=== PATIENT | female | born 1965 | race Caucasian/White ===

== ENCOUNTER 2018-07-28 19:57 | Emergency (ER) | payer BC ==
[2018-07-28] MEDS ORDERED: ASPIRIN 81 MG TABLET, CHEWABLE PO ONE (19:58)
--- NOTE | 2018-07-28 20:44 | RADIOLOGY REPORT (SQ) ---
XR CHEST 1 VIEW HISTORY: CP. COMPARISON: None. FINDINGS: The heart size is normal. The lungs are clear. No pleural effusions or pneumothorax is seen. No acute bony findings. IMPRESSION: No evidence of acute cardiopulmonary disease.
[2018-07-28 21:39] LABS: ABSOLUTE EOSINOPHILS # (AUTO) 0.1 10^3/uL (0.0-0.6); ABSOLUTE LYMPHOCYTES (AUTO) 1.1 10^3/uL (0.5-4.7); ABSOLUTE MONOCYTES (AUTO) 0.8 10^3/uL (0.1-1.4); ABSOLUTE NEUT (AUTO) 17.6 10^3/uL (1.7-8.2); BASOPHILS % (AUTO) 0.2 % (0-2); EOSINOPHILS % (AUTO) 0.3 % (0-6); HEMATOCRIT 46.4 % (36.0-47.0); HEMOGLOBIN 15.9 g/dL (12.0-15.5); LYMPHOCYTES % (AUTO) 5.6 % (13-45); MEAN CORPUSCULAR HEMOGLOBIN 31.5 pg (27.0-33.4); MEAN CORPUSCULAR HGB CONC 34.2 g/dL (32.0-36.0); MEAN CORPUSCULAR VOLUME 92 fl (80-97); MONOCYTES % (AUTO) 3.9 % (3-13); PLATELET COUNT 274 10^3/uL (150-450); RED BLOOD COUNT 5.04 10^6/uL (3.72-5.28); RED CELL DISTRIBUTION WIDTH 11.9 % (11.5-14.0); TOTAL CELLS COUNTED % (AUTO) 100 %; WHITE BLOOD COUNT 19.5 10^3/uL (4.0-10.5)
--- NOTE | 2018-07-28 21:53 | ER Document Report ---
ED General - General Chief Complaint: Chest Pain > 30 Stated Complaint: CHEST PAIN Time Seen by Provider: 07/28/18 21:43 Primary Care Provider: ALYCIA MAKI PA-C [Primary Care Provider] - Follow up in 3-5 days Notes: Patient is a 52-year-old female that comes to the emergency department for chief complaint of an episode that happened at 6 PM where she was eating dinner and suddenly felt pain in her chest, she points to her lower sternum area, she states she then vomited, she vomited 4 more times, she had several episodes of diarrhea after this. Pain with due to her back. She states now she feels a lot better, she denies any current symptoms including nausea, Mouna pain, chest pain, back pain. She denies shortness of breath, fever or chills. She drinks alcohol almost daily, she is treated with a diuretic and for hypertension, she states that she had a stress test in 2016 although denies ever having a cardiac catheterization, cardiac stent, or confirmed [place]. She denies smoking or recreational drugs. She states her only surgical history are adenoids and uterine ablation. TRAVEL OUTSIDE OF THE [place] IN LAST 30 DAYS: No - Related Data Allergies/Adverse Reactions: IVP dye Allergy (Uncoded 07/28/18 19:59) Past Medical History - General Information source: Patient - Social History Smoking Status: Never Smoker Chew tobacco use (# tins/day): No Frequency of alcohol use: None Drug Abuse: None Lives with: Family Family History: Reviewed & Not Pertinent Patient has suicidal ideation: No Patient has homicidal ideation: No - Past Medical History Cardiac Medical History: Reports: Hx Hypertension Renal/ Medical History: Denies: Hx Peritoneal Dialysis - Immunizations Immunizations up to date: Yes Hx Diphtheria, Pertussis, Tetanus Vaccination: Yes Review of Systems - Review of Systems Constitutional: No symptoms reported EENT: No symptoms reported Cardiovascular: See HPI Respiratory: No symptoms reported Gastrointestinal: See HPI Genitourinary: No symptoms reported Female Genitourinary: No symptoms reported Musculoskeletal: No symptoms reported Skin: No symptoms reported Hematologic/Lymphatic: No symptoms reported Neurological/Psychological: No symptoms reported Physical Exam - Vital signs Vitals: Temp Pulse Resp BP Pulse Ox 98.0 F 93 16 139/90 H 96 07/28/18 20:17 07/28/18 20:17 07/28/18 20:17 07/28/18 20:17 07/28/18 20:17 - Notes Notes: GENERAL: Alert, interacts well. No acute distress. HEAD: Normocephalic, atraumatic. EYES: Pupils equal, round, and reactive to light. Extraocular movements intact. ENT: Oral mucosa dry, tongue midline. Oropharynx unremarkable. Airway patent. Nares patent, no nasal septal hematoma, TM's intact. NECK: Full range of motion. Supple. Trachea midline. LUNGS: Clear to auscultation bilaterally, no wheezes, rales, or rhonchi. No respiratory distress. HEART: Regular rate and rhythm. No murmur ABDOMEN: Soft, non-tender. Non-distended. Bowel sounds present in all 4 quadrants. GENITOURINARY: Deferred EXTREMITIES: Moves all 4 extremities spontaneously. No edema, normal radial and dorsalis pedis pulses bilaterally. No cyanosis. BACK: no cervical, thoracic, lumbar midline tenderness. No saddle anesthesia, normal distal neurovascular exam. NEUROLOGICAL: Alert and oriented x3. Normal speech. [cranial nerves II through X II grossly intact]. PSYCH: Normal affect, normal mood. SKIN: Warm, dry, normal turgor. No rashes or lesions noted. Course - Re-evaluation Re-evalutation: EKG sinus rhythm with no T wave inversions or ST segment changes in consecutive leads. Chest x-ray unremarkable. Patient is symptomatic on my evaluation. Soft nontender abdomen. Clear lungs. Unremarkable vital signs. Patient with multiple vomiting episodes and multiple diarrhea episodes of acute onset. She admits that she felt like she was getting sick during the course of the day as well. Troponin negative. CBC shows leukocytosis. Chemistry unremarkable. I reevaluated patient, she states she has no current symptoms, I discussed possible CAT scan because of the leukocytosis but I did reexamine her abdomen is completely benign. Patient declines CAT scan imaging. She repeats she is doing well. She tolerated p.o. without any difficulty. Patient agreeable with cycle troponin and this was performed and negative. Based on her vomiting and diarrhea I suspect this is viral and dehydration, she was given IV fluids. Again discussed with patient and again declined CAT scan. She remains extremely well-appearing. No additional episodes of vomiting or diarrhea. Patient will be treated at home with nausea medication, she will follow strict return precautions, she will follow-up with primary care. Patient states satisfaction and agreement with plan. Stable at time of discharge. - Vital Signs Vital signs: Temp Pulse Resp BP Pulse Ox 98.0 F 93 20 126/87 H 94 07/28/18 20:17 07/28/18 20:17 07/29/18 00:01 07/29/18 00:01 07/29/18 00:01 - Laboratory Result Diagrams: 07/28/18 21:00 07/28/18 23:19 Laboratory results interpreted by me: 07/28/18 07/28/18 21:00 23:19 WBC 19.5 H Hgb 15.9 H Seg Neutrophils % 90.0 H Lymphocytes % 5.6 L Absolute Neutrophils 17.6 H BUN 25 H Glucose 130 H AST 38 H Albumin 5.1 H Discharge - Discharge Clinical Impression: Vomiting and diarrhea, Dehydration Chest pain Qualifiers: Chest pain type: unspecified Qualified Code(s): R07.9 - Chest pain, unspecified Condition: Stable Disposition: HOME, SELF-CARE Additional Instructions: At this time your workup is reassuring. Continue rehydration at home, take the Pepcid as prescribed, take the Zofran if needed for nausea, start with bland food and slowly progress. Return if you worsen including uncontrolled vomiting, returned or severe pain, fever, difficulty breathing, or any other concerning or worsening symptoms. Prescriptions: Famotidine [Pepcid 20 mg Tablet] 20 mg PO BID #12 tablet Ondansetron [Zofran Odt 4 mg Tablet] 1 - 2 tab PO Q4H PRN #15 tab.rapdis PRN Reason: For Nausea/Vomiting Referrals: ALYCIA MAKI PA-C [Primary Care Provider] - Follow up in 3-5 days
[2018-07-28 22:13] LABS: CREATINE KINASE MB 1.64 ng/mL (<4.55); TROPONIN I < 0.012 ng/mL
[2018-07-28] MEDS ORDERED: NORMAL SALINE 1000 ML 1,000 ML IV ONE (23:10)
[2018-07-28 23:43] LABS: ALANINE AMINOTRANSFERASE 43 U/L (9-52); ALBUMIN 5.1 g/dL (3.5-5.0); ALKALINE PHOSPHATASE 59 U/L (38-126); ANION GAP 12 (5-19); ASPARTATE AMINO TRANSFERASE 38 U/L (14-36); BILIRUBIN,DIRECT 0.2 mg/dL (0.0-0.4); BILIRUBIN,TOTAL 0.7 mg/dL (0.2-1.3); BLOOD UREA NITROGEN 25 mg/dL (7-20); CALCIUM 10.2 mg/dL (8.4-10.2); CARBON DIOXIDE 26 mmol/L (22-30); CHLORIDE 100 mmol/L (98-107); CREATINE KINASE 130 U/L (30-135); GLUCOSE 130 mg/dL (75-110); POTASSIUM 4.2 mmol/L (3.6-5.0); SODIUM 138.4 mmol/L (137-145); TOTAL PROTEIN 7.4 g/dL (6.3-8.2)
--- NOTE | 2018-07-29 00:31 | EKG REPORT ---
SEVERITY:- BORDERLINE ECG - SINUS RHYTHM BORDERLINE T ABNORMALITIES, ANTERIOR LEADS : Confirmed by: Mary Ellen Emery MD 29-Jul-2018 00:30:38
[2018-07-29] MEDS ORDERED: ONDANSETRON ODT 4 MG TAB (6 TAB/ER DISP) PO PRN (00:43)
[2018-07-29 00:55] VITALS: BP 126/87
== END 2018-07-29 00:55 | disposition home or self-care (01) ==
LOC: ER 19:57
DX: R07.9 Chest pain, unspecified (principal); E86.0 Dehydration; R11.10 Vomiting, unspecified; R19.7 Diarrhea, unspecified; M54.9 Dorsalgia, unspecified; I10 Essential (primary) hypertension; Z79.899 Other long term (current) drug therapy
CPT/HCPCS: 93005; 99285; 96360; 36415; 82553; 82550; 83690; 85025; 80053; 84484; 71045; 93010; J7030